=== PATIENT | female | born 1995 | race Caucasian/White ===

== ENCOUNTER 2017-04-06 15:16 | Emergency (ER) | payer OTHER ==
[~2017-04-06] VITALS: Ht 162.6 cm; Wt 67.3 kg
[2017-04-06] MEDS ORDERED: PRENCHW PO (15:28)
[2017-04-06] MEDS ORDERED: diphenhydrAMINE INJ 50MG/ML VIAL (J1200) IV STA (17:02)
[2017-04-06] MEDS ORDERED: NS 1,000 ML IV ONE (17:15)
[2017-04-06] MEDS ORDERED: METOCLOPRAMIDE INJ 10MG/2ML VIAL (J2765) IV ONE (17:15)
[2017-04-06 17:33] LABS: BASO % 0.5 % (0.0-1.0); EOS # 0.1 K/mm3 (0.0-0.50); EOS % 0.9 % (0.0-3.0); LARGE UNSTAINED CELL # 0.1 K/mm3 (0.0-0.4); LARGE UNSTAINED CELL % 1.2 % (0.0-4.0); LYMPH # 1.2 K/mm3 (1.5-6.5); LYMPH % 13.1 % (24.0-44.0); MEAN CORPUSCULAR HEMOGLOBIN 30.4 pg (27.0-33.0); MEAN CORPUSCULAR HGB CONC 34.4 g/dl (32.0-36.5); MEAN CORPUSCULAR VOLUME 88.5 fl (80.0-96.0); MONO # 0.3 K/mm3 (0.0-0.8); MONO % 3.8 % (0.0-5.0); NEUTROPHILS # 7.3 K/mm3 (1.8-7.7); NEUTROPHILS % 80.5 % (36.0-66.0); PLATELET COUNT, AUTOMATED 252 k/mm3 (150-450); RED CELL DISTRIBUTION WIDTH 12.4 % (11.5-14.5)
[2017-04-06 18:11] LABS: ALBUMIN 4.2 GM/DL (3.2-5.2); ALBUMIN/GLOBULIN RATIO 1.02 (1.00-1.93); ALKALINE PHOSPHATASE 54 U/L (45-117); ALT/SGPT 20 U/L (12-78); ANION GAP 14 MEQ/L (8-16); AST/SGOT 11 U/L (15-37); BILIRUBIN,DIRECT 0.2 MG/DL (0.0-0.2); BILIRUBIN,TOTAL 0.6 MG/DL (0.2-1.0); BLOOD UREA NITROGEN 7 MG/DL (7-18); CALCIUM LEVEL 9.3 MG/DL (8.5-10.1); CARBON DIOXIDE LEVEL 20 MEQ/L (21-32); CHLORIDE LEVEL 103 MEQ/L (98-107); CREATININE FOR GFR 0.51 MG/DL (0.55-1.02); GLOMERULAR FILTRATION RATE > 60.0 (>60); GLUCOSE, FASTING 65 MG/DL (70-105); POTASSIUM SERUM 3.8 MEQ/L (3.5-5.1); SODIUM LEVEL 137 MEQ/L (136-145); TOTAL PROTEIN 8.3 GM/DL (6.4-8.2)
[2017-04-06] MEDS ORDERED: REGL10TA6 PO (19:01)
[2017-04-06 19:09] LABS: HCG, SERUM QUANTITATIVE 269575 MIU/ML
[2017-04-06 19:12] VITALS: BP 116/65
== END 2017-04-06 19:15 | disposition home or self-care (01) ==
LOC: M ED 15:16
DX: E86.0 Dehydration (principal); R19.7 Diarrhea, unspecified; Z3A.10 10 weeks gestation of pregnancy; Z98.890 Other specified postprocedural states; Z91.040 Latex allergy status
CPT/HCPCS: 80048; 80076; 81001; 84702; 85025; 86901; 87086; 96374; 96375; 99282; J1200; J2765

== ENCOUNTER 2017-04-08 20:25 | Observation (INO) | payer OTHER ==
[~2017-04-08] VITALS: Ht 162.6 cm; Wt 59.1 kg
[~2017-04-08 20:25] MED LIST: PRENCHW PO; REGL10TA6 PO
[2017-04-08] MEDS ORDERED: NS 1,000 ML IV ONE (21:30)
[2017-04-08] MEDS ORDERED: PROMETHAZINE INJ 25 MG/ML VIAL (J2550) IV ONE (21:30)
[2017-04-08 21:58] LABS: BASO % 0.4 % (0.0-1.0); EOS # 0.1 K/mm3 (0.0-0.50); LARGE UNSTAINED CELL # 0.1 K/mm3 (0.0-0.4); LYMPH # 0.8 K/mm3 (1.5-6.5); LYMPH % 7.4 % (24.0-44.0); MEAN CORPUSCULAR HEMOGLOBIN 30.7 pg (27.0-33.0); MEAN CORPUSCULAR HGB CONC 35.3 g/dl (32.0-36.5); MEAN CORPUSCULAR VOLUME 87.1 fl (80.0-96.0); MONO # 0.4 K/mm3 (0.0-0.8); NEUTROPHILS # 9.5 K/mm3 (1.8-7.7); NEUTROPHILS % 86.3 % (36.0-66.0); PLATELET COUNT, AUTOMATED 276 k/mm3 (150-450); RED CELL DISTRIBUTION WIDTH 12.5 % (11.5-14.5)
[2017-04-08 22:14] LABS: ALBUMIN 4.2 GM/DL (3.2-5.2); ALBUMIN/GLOBULIN RATIO 0.79 (1.00-1.93); ALKALINE PHOSPHATASE 60 U/L (45-117); ALT/SGPT 21 U/L (12-78); ANION GAP 15 MEQ/L (8-16); AST/SGOT 8 U/L (15-37); BILIRUBIN,DIRECT 0.1 MG/DL (0.0-0.2); BILIRUBIN,TOTAL 0.5 MG/DL (0.2-1.0); BLOOD UREA NITROGEN 7 MG/DL (7-18); CALCIUM LEVEL 10.3 MG/DL (8.5-10.1); CARBON DIOXIDE LEVEL 13 MEQ/L (21-32); CHLORIDE LEVEL 109 MEQ/L (98-107); CREATININE FOR GFR 0.63 MG/DL (0.55-1.02); GLOMERULAR FILTRATION RATE > 60.0 (>60); GLUCOSE, FASTING 93 MG/DL (70-105); POTASSIUM SERUM 3.6 MEQ/L (3.5-5.1); SODIUM LEVEL 137 MEQ/L (136-145); TOTAL PROTEIN 9.5 GM/DL (6.4-8.2)
[2017-04-08] MEDS ORDERED: METO10TA2 PO (22:35)
--- NOTE | 2017-04-08 22:40 | REPUSA ---
Clinical history: cramping. Findings: Real-time transabdominal and transvaginal ultrasound images of the pelvis were obtained. Th ere is a single live intrauterine . The crown rump length measures 4.8 cm. heart rate measures 180 bpm. There is no evidence of a subchorionic hemorrhage. The right ovary measures 2.8 x 2 .6 x 1.5 cm. The left ovary measures 2.9 x 2.4 x 2.2 cm. No adnexal masses are seen. There is no augusto dence of free fluid. Impression: Single live intrauterine measuring 11 weeks 4 days, with estimated due date of 10/24/2017.
[2017-04-08] MEDS ORDERED: diphenhydrAMINE INJ 50MG/ML VIAL (J1200) IV STA (22:44)
[2017-04-08] MEDS ORDERED: ONDANSETRON 4MG/2ML VIAL (J2405) IV ONE (22:45)
[2017-04-08] MEDS ORDERED: METOCLOPRAMIDE 10 MG TAB PO PRN (23:15)
[2017-04-08] MEDS ORDERED: ACETAMINOPHEN 325 MG TAB PO ONE (23:30)
[2017-04-09 00:15] VITALS: BP 99/58
[2017-04-09] MEDS: LR 1,000 ML IV SCH ×3 (00:34→16:14)
[2017-04-09 06:39] VITALS: BP 88/52
--- NOTE | 2017-04-09 07:00 | HPE ---
DATE OF ADMISSION: 04/08/2017 REASON FOR ADMISSION: Hyperemesis. HISTORY OF PRESENT ILLNESS: This patient is a 21-year-old 3, para 1, who presented to the emergency room (ER) at 10 weeks 4 days estimated gestational age (EGA) with complaints of nausea and vomiting. She was initially seen on Sunday with the same complaints. She was hydrated and given antiemetics in the emergency department. She represented approximately 36 hours later with persistent nausea and vomiting. She denied any fever or chills, no flank pain, or abdominal pain. PAST MEDICAL HISTORY: None. PAST SURGICAL HISTORY: She has had a dilatation and curettage. PAST OBSTETRICAL HISTORY: She is a 3, para 1. She has had one delivery at 35 weeks, proved to 7 pounds 1 ounce, and had a miscarriage in her first trimester. MEDICATIONS: - vitamins - Reglan ALLERGIES: No known drug allergies. SOCIAL HISTORY: She denies any alcohol, tobacco or drug use during her . PHYSICAL EXAMINATION: VITAL SIGNS: Stable. She is afebrile. GENERAL APPEARANCE: No acute distress. LUNGS: Clear to auscultation bilaterally and clear. CARDIOVASCULAR: Heart regular rate and rhythm. ABDOMEN: Soft, nontender. She had no CVA tenderness. LABORATORIES: CBC: Hemoglobin 16.4, hematocrit 46.5, platelets 276. She had a urine that was consistent with a urinary tract infection. ASSESSMENT: 1. This patient is a 21-year-old 3, para 1 at 10 weeks, 4 days with hyperemesis with . 2. Urinary tract infection. PLAN: 1. Admit for IV hydration and antiemetics. 2. Ancef 1 gram every 12 hours for urinary tract infection. 3. Replacement of any electrolyte deficiencies.
[2017-04-09] MEDS: PRENATAL VITAMINS CHEWABLE TABLET PO SCH (09:00)
[2017-04-09] MEDS: ceFAZolin SOD 1 GM in D5W MINI-BAG PLUS 50 ML IV SCH ×2 (10:50→23:11)
[2017-04-09] MEDS: PROMETHAZINE INJ 25 MG/ML VIAL (J2550) IV PRN ×2 (12:32→19:54)
[2017-04-09 14:00] VITALS: BP 91/53
[2017-04-09 18:09] VITALS: BP 84/50
[2017-04-09] MEDS: KCL 20MEQ IN D5/0.45NS 1000ML 1,000 ML IV SCH (18:28)
[2017-04-09] MEDS ORDERED: ACETAMINOPHEN 500 MG TAB PO PRN (22:00)
[2017-04-09 22:12] VITALS: BP 92/55
[2017-04-10] MEDS: KCL 20MEQ IN D5/0.45NS 1000ML 1,000 ML IV SCH ×3 (03:44→18:32)
[2017-04-10 06:16] VITALS: BP 82/46
[2017-04-10] MEDS: PRENATAL VITAMINS CHEWABLE TABLET PO SCH (08:52)
[2017-04-10] MEDS: PROMETHAZINE INJ 25 MG/ML VIAL (J2550) IV PRN ×2 (10:10→18:32)
[2017-04-10] MEDS: ceFAZolin SOD 1 GM in D5W MINI-BAG PLUS 50 ML IV SCH ×2 (10:21→23:05)
[2017-04-10 14:08] VITALS: BP 87/50
[2017-04-10 18:17] VITALS: BP 99/56
[2017-04-10 22:00] VITALS: BP 86/52
[2017-04-11] MEDS: KCL 20MEQ IN D5/0.45NS 1000ML 1,000 ML IV SCH (00:30)
[2017-04-11 06:30] VITALS: BP 80/46
[2017-04-11] MEDS: PRENATAL VITAMINS CHEWABLE TABLET PO SCH (08:17)
[2017-04-11] MEDS: ceFAZolin SOD 1 GM in D5W MINI-BAG PLUS 50 ML IV SCH (11:23)
[2017-04-11] MEDS ORDERED: ACET50TA PO (12:22)
[2017-04-11] MEDS ORDERED: PHEN1SUP6 PO (12:22)
--- NOTE | 2017-04-11 12:57 | DSES ---
DATE OF ADMISSION: 04/08/2017 DATE OF DISCHARGE: 21-year-old, 2, para 1 female at 10 and 4/7 weeks gestation who presented with extreme nausea and vomiting for the last several days. She is unable to keep down any oral intake. Oral Reglan has not helped. The patient was admitted for hyperemesis gravidarum on 04/08/2017. She received IV fluids, as well as IV Phenergan and Reglan. She received IV Ancef for a possible urinary tract infection. She made slow improvement. She was eventually able to tolerate small amounts of solids and then liquids in her diet. She was deemed stable for discharge on hospital day #3. ADMISSION DIAGNOSIS: 10 week hyperemesis gravidarum. DISCHARGE DIAGNOSIS: 10 week hyperemesis gravidarum. DISPOSITION: The patient will followup in 1 week with [facility]. She will take Phenergan for nausea at home.
== END 2017-04-11 14:20 | disposition home or self-care (01) ==
LOC: M ED 20:25 → M ED INP 22:44 → UNDOADMOB 22:44 → M ED INP 23:14 → M OBS 04-09 00:06
PROVIDERS: ADMIT Obstetrics & Gynecology; ATTEND Obstetrics & Gynecology
DX: O21.0 Mild hyperemesis gravidarum (principal); O23.41 Unspecified infection of urinary tract in pregnancy, first trimester; Z3A.10 10 weeks gestation of pregnancy
CPT/HCPCS: 76801; 80048; 80076; 81001; 85025; 86850; 86900; 86901; 87086; 96361; 96374; 96375; 96376; 99284; J0690; J1200; J2405

== ENCOUNTER 2017-04-21 16:56 | Emergency (ER) | payer OTHER ==
[~2017-04-21] VITALS: Ht 162.6 cm; Wt 60.0 kg
[~2017-04-21 16:56] MED LIST changes: +ACET50TA PO; +METO10TA2 PO; +PHEN1SUP6 PO
[2017-04-21] MEDS ORDERED: NS 1,000 ML IV ONE ×3 (17:30→22:00)
[2017-04-21] MEDS ORDERED: METOCLOPRAMIDE INJ 10MG/2ML VIAL (J2765) IV ONE (17:45)
[2017-04-21] MEDS ORDERED: PROMETHAZINE INJ 25 MG/ML VIAL (J2550) IV ONE ×2 (17:45→22:00)
[2017-04-21 17:49] LABS: BASO # 0.1 10^3/uL (0.0-0.2); BASO % 0.4 % (0.0-1.0); EOS % 0.1 % (0.0-3.0); IMMATURE GRANULOCYTE % 0.4 % (0-0); LYMPH % 8.6 % (24.0-44.0); MEAN CORPUSCULAR HEMOGLOBIN 29.4 pg (27.0-33.0); MEAN CORPUSCULAR HGB CONC 33.4 g/dl (32.0-36.5); MEAN CORPUSCULAR VOLUME 87.9 fl (80.0-96.0); MONO # 0.5 10^3/uL (0.0-0.8); MONO % 4.4 % (0.0-5.0); NEUTROPHILS # 9.8 10^3/uL (1.8-7.7); NEUTROPHILS % 86.1 % (36.0-66.0); PLATELET COUNT, AUTOMATED 297 10^3/uL (150-450); RED CELL DISTRIBUTION WIDTH 12.8 % (11.5-14.5); WHITE BLOOD COUNT 11.3 10^3/uL (4.0-10.0)
[2017-04-21 17:50] LABS: ADD MORPHOLOGY? NO
[2017-04-21 18:14] LABS: ALBUMIN 3.8 GM/DL (3.2-5.2); ALBUMIN/GLOBULIN RATIO 0.84 (1.00-1.93); ALKALINE PHOSPHATASE 51 U/L (45-117); ALT/SGPT 22 U/L (12-78); ANION GAP 14 MEQ/L (8-16); AST/SGOT 14 U/L (15-37); BILIRUBIN,DIRECT 0.1 MG/DL (0.0-0.2); BILIRUBIN,TOTAL 0.5 MG/DL (0.2-1.0); BLOOD UREA NITROGEN 6 MG/DL (7-18); CALCIUM LEVEL 9.7 MG/DL (8.5-10.1); CARBON DIOXIDE LEVEL 14 MEQ/L (21-32); CHLORIDE LEVEL 105 MEQ/L (98-107); CREATININE FOR GFR 0.51 MG/DL (0.55-1.02); GLOMERULAR FILTRATION RATE > 60.0 (>60); GLUCOSE, FASTING 68 MG/DL (70-105); POTASSIUM SERUM 4.2 MEQ/L (3.5-5.1); SODIUM LEVEL 133 MEQ/L (136-145); TOTAL PROTEIN 8.3 GM/DL (6.4-8.2)
[2017-04-21] MEDS ORDERED: DEXTROSE 50% 50 ML SYRINGE IV STA (18:38)
[2017-04-21 20:04] LABS: MAGNESIUM LEVEL 1.7 MG/DL (1.8-2.4)
--- NOTE | 2017-04-21 21:20 | REPUSA ---
CLINICAL HISTORY: , dehydration COMPARISON: April 08, 2017. TECHNIQUE: Pelvic ultrasound, transabdominal Uterus: Normal without masses. Intrauterine gestation sac: Live IUP at 13 weeks 1 day with heart rate 163 bpm. Posterior placenta, w ith normal appearance. Ovaries: Normal size. No masses. Pelvic fluid: Insignificant. IMPRESSION: Live IUP at 13 weeks, 1 day. Sizes equal dates.
--- NOTE | 2017-04-21 21:52 | ECGEPIP ---
Stationary ECG Study [facility] - ED Test Date: 2017-04-21 Pat Name: ROSCOE MONIQUE Department: Room: - Gender: F Research Statistician: [facility] : 1995 Requested By: AYAKA HNEDRICKSON PA-C Order Number: [id number] Reading MD: Derik Chapa Measurements Intervals [place] Rate: 111 P: 55 NV: 163 QRS: 29 QRSD: 81 T: 15 QT: 319 QTc: 434 Interpretive Statements SINUS TACHYCARDIA NO PRIORS Electronically Signed On 04-21-2017 21:52:19 EDT by Derik Chapa
[2017-04-21] MEDS ORDERED: DRAM50TA7 PO (23:46)
[2017-04-22 00:13] VITALS: BP 106/58
== END 2017-04-22 00:23 | disposition home or self-care (01) ==
LOC: M ED 16:56
DX: O99.281 Endocrine, nutritional and metabolic diseases complicating pregnancy, first trimester (principal); E86.0 Dehydration; O21.0 Mild hyperemesis gravidarum; O99.611 Diseases of the digestive system complicating pregnancy, first trimester; K59.00 Constipation, unspecified; O99.341 Other mental disorders complicating pregnancy, first trimester; F41.9 Anxiety disorder, unspecified; F31.9 Bipolar disorder, unspecified; Z3A.13 13 weeks gestation of pregnancy; Z91.040 Latex allergy status
CPT/HCPCS: 76801; 80048; 80076; 81001; 83690; 83735; 85025; 93005; 96361; 96374; 96375; 99283; J2765

== ENCOUNTER → 2017-09-03 | Outpatient (CLI) | payer OTHER ==
[2017-09-03 17:02] LABS: GLUCOSE CHALLENGE TEST 1 HOUR 136 MG/DL (LESS THAN 140)
[2017-09-03 17:23] LABS: HEMOGLOBIN 9.9 g/dl (12.0-16.0); MEAN CORPUSCULAR HGB CONC 30.9 g/dl (32.0-36.5); PLATELET COUNT, AUTOMATED 266 10^3/uL (150-450); RED BLOOD COUNT 3.81 10^6/uL (4.00-5.40); WHITE BLOOD COUNT 8.7 10^3/uL (4.0-10.0)
== END ==
LOC: M LAB 14:58
DX: Z36.89 Encounter for other specified antenatal screening (principal); Z3A.00 Weeks of gestation of pregnancy not specified
CPT/HCPCS: 82950

== ENCOUNTER → 2017-09-07 | Outpatient (CLI) | payer OTHER ==
[2017-09-07 09:40] LABS: GLUCOSE, FASTING 88 MG/DL (LESS THAN 95)
[2017-09-07 10:22] LABS: 1 HR GLUCOSE 133 MG/DL (LESS THAN 180)
[2017-09-07 11:18] LABS: 2 HR GLUCOSE 109 MG/DL (LESS THAN 155)
[2017-09-07 13:05] LABS: 3 HR GLUCOSE 86 MG/DL (LESS THAN 140)
== END ==
LOC: M LAB 08:14
DX: Z36.89 Encounter for other specified antenatal screening (principal); Z3A.00 Weeks of gestation of pregnancy not specified
CPT/HCPCS: 82951

== ENCOUNTER 2017-10-04 02:59 | Outpatient (CLI) | payer OTHER ==
[2017-10-04 08:05] LABS: HEMATOCRIT 29.7 % (36.0-47.0); HEMOGLOBIN 9.5 g/dl (12.0-16.0); MEAN CORPUSCULAR HEMOGLOBIN 27.8 pg (27.0-33.0); MEAN CORPUSCULAR VOLUME 86.8 fl (80.0-96.0); PLATELET COUNT, AUTOMATED 287 10^3/uL (150-450); RED BLOOD COUNT 3.42 10^6/uL (4.00-5.40); RED CELL DISTRIBUTION WIDTH 21.2 % (11.5-14.5); WHITE BLOOD COUNT 13.6 10^3/uL (4.0-10.0)
[2017-10-04] MEDS: PENICILLIN G POTASSIUM IV 5 MU in D5W MINI-BAG PLUS 100 ML IV (08:14)
[2017-10-04 08:26] LABS: AMPHETAMINES URINE REFLEX NEGATIVE (NEGATIVE); BARBITURATES URINE REFLEX NEGATIVE (NEGATIVE); BENZODIAZEPINES URINE REFLEX NEGATIVE (NEGATIVE); CANNABINOIDS URINE REFLEX NEGATIVE (NEGATIVE); COCAINE METABOLITE URINE REFLE NEGATIVE (NEGATIVE); METHADONE URINE REFLEX NEGATIVE (NEGATIVE); OPIATES URINE REFLEX NEGATIVE (NEGATIVE); PHENCYCLIDINE URINE REFLEX NEGATIVE (NEGATIVE)
[2017-10-04 10:36] LABS: HBSAG L&D NEGATIVE (NEGATIVE)
[2017-10-04] MEDS: PENICILLIN G POTASSIUM IV 2.5 MU in APPROPRIATE DILUENT 1 EA IV ×2 (13:01→16:17)
== END 2017-10-04 21:16 | disposition home or self-care (01) ==
LOC: M LDO 02:59 → M LDI 07:33
DX: O47.03 False labor before 37 completed weeks of gestation, third trimester (principal); Z3A.36 36 weeks gestation of pregnancy; Z79.899 Other long term (current) drug therapy; Z91.040 Latex allergy status
CPT/HCPCS: 59025

== ENCOUNTER → 2017-10-05 | Outpatient (REF) | payer OTHER | LOC: M LAB REF 17:23 | DX: Z34.83 Encounter for supervision of other normal pregnancy, third trimester (principal) ==

== ENCOUNTER 2017-10-09 13:40 | Outpatient (CLI) | payer OTHER | END 2017-10-09 17:52 | disposition home or self-care (01) | LOC: M LDO 13:40 | DX: O47.03 False labor before 37 completed weeks of gestation, third trimester (principal); Z3A.36 36 weeks gestation of pregnancy; N89.8 Other specified noninflammatory disorders of vagina; Z91.040 Latex allergy status; O26.893 Other specified pregnancy related conditions, third trimester | CPT/HCPCS: 59025 ==

== ENCOUNTER 2017-10-17 05:01 | Inpatient (IN) | payer OTHER ==
[2017-10-17] MEDS ORDERED: OXYTOCIN 30 UNITS IN 0.9% NaCl 500ML IV BAG (J2590) As Ordered (05:43)
[2017-10-17] MEDS ORDERED: OXYTOCIN DRIP 30 UNITS in APPROPRIATE DILUENT 1 EA IV (06:16)
[2017-10-17 06:20] LABS: HEMOGLOBIN 12.8 g/dl (12.0-16.0); MEAN CORPUSCULAR HEMOGLOBIN 27.5 pg (27.0-33.0); MEAN CORPUSCULAR VOLUME 85.8 fl (80.0-96.0); PLATELET COUNT, AUTOMATED 275 10^3/uL (150-450); RED BLOOD COUNT 4.66 10^6/uL (4.00-5.40); RED CELL DISTRIBUTION WIDTH 20.3 % (11.5-14.5); WHITE BLOOD COUNT 9.9 10^3/uL (4.0-10.0)
[2017-10-17] MEDS ORDERED: MOM 30ML SUSPENSION UDC PO (06:30)
[2017-10-17] MEDS: LIDOCAINE 1% MDV 20ML VIAL INFIL (06:30)
[2017-10-17] MEDS ORDERED: MEASLES,MUMPS,RUBELLA VACCINE INJ (MMR-II) (90707) SC (06:30)
[2017-10-17] MEDS ORDERED: ANUSOL HC CREAM 30GM TOP (06:30)
[2017-10-17] MEDS ORDERED: RHOGAM 300 MCG (1500 IU) INJ (J2790) IM (06:30)
[2017-10-17] MEDS: miSOPROStol 200 MCG TAB (S0191) PR (06:30)
[2017-10-17] MEDS: OXYTOCIN INJ 10 UNITS/ML VIAL (J2590) IM (06:30)
[2017-10-17] MEDS: METHYLERGONOVINE MALEATE 0.2 MG/ML VIAL (J2210) IM (06:30)
[2017-10-17] MEDS: IBUPROFEN 800 MG TAB PO ×2 (08:03→15:50)
[2017-10-17] MEDS: FERROUS SULFATE 325MG TAB PO (09:34)
[2017-10-17] MEDS: METHYLERGONOVINE MALEATE 0.2 MG TAB PO ×3 (09:34→21:26)
[2017-10-17] MEDS: ACETAMINOPHEN 500 MG TAB PO (09:34)
[2017-10-17] MEDS: PRENATAL VITAMINS CHEWABLE TABLET PO (09:42)
[2017-10-17] MEDS: DIBUCAINE 1% OINTMENT 30GM TOP (19:48)
[2017-10-18] MEDS: METHYLERGONOVINE MALEATE 0.2 MG TAB PO ×3 (03:04→17:14)
[2017-10-18 07:24] LABS: HEMATOCRIT 35.5 % (36.0-47.0); HEMOGLOBIN 11.2 g/dl (12.0-16.0); MEAN CORPUSCULAR HEMOGLOBIN 27.1 pg (27.0-33.0); MEAN CORPUSCULAR HGB CONC 31.5 g/dl (32.0-36.5); PLATELET COUNT, AUTOMATED 233 10^3/uL (150-450); RED BLOOD COUNT 4.13 10^6/uL (4.00-5.40); RED CELL DISTRIBUTION WIDTH 20.2 % (11.5-14.5); WHITE BLOOD COUNT 11.5 10^3/uL (4.0-10.0)
[2017-10-18] MEDS: PRENATAL VITAMINS CHEWABLE TABLET PO (11:04)
[2017-10-18] MEDS: FERROUS SULFATE 325MG TAB PO (11:04)
[2017-10-18] MEDS ORDERED: METHYLERGONOVINE MALEATE 0.2 MG TAB PO (19:15)
[2017-10-19] MEDS: PRENATAL VITAMINS CHEWABLE TABLET PO (09:20)
[2017-10-19] MEDS: DOCUSATE SODIUM 100 MG CAP PO (09:20)
[2017-10-19] MEDS: FERROUS SULFATE 325MG TAB PO (09:20)
[2017-10-19] MEDS: IBUPROFEN 800 MG TAB PO (09:24)
[2017-10-20] MEDS ORDERED: LIDOCAINE 1% MDV 20ML VIAL As Ordered (16:59)
== END 2017-10-19 10:27 | disposition home or self-care (01) | DRG 775 ==
LOC: M LDO 05:01 → M LDI 05:28 → M OBS 13:23
PROVIDERS: Advanced Practice Midwife
PROC: 10E0XZZ Delivery of Products of Conception, External Approach (ICD-10-PCS; principal; 2017-10-17)
PROC: 0KQM0ZZ Repair Perineum Muscle, Open Approach (ICD-10-PCS; 2017-10-17)
DX: O70.1 Second degree perineal laceration during delivery (principal); Z37.0 Single live birth; Z3A.37 37 weeks gestation of pregnancy